=== PATIENT | male | born 1960 | race Caucasian/White ===

== ENCOUNTER → 2022-11-21 | Outpatient (CLI) | payer MEDICARE, MEDICAID ==
[~2022-11-21] MED LIST: HYDR1TAB8 OP; HYOS0.1216 PO; NF-ESOM40C PO; OXYC1TAB87 PO; QTP100T PO; SCR1T1; ZPR20C PO
== END ==
LOC: ORTHO 14:07
PROVIDERS: ATTEND Orthopaedic Surgery
DX: M16.12 Unilateral primary osteoarthritis, left hip (principal)
CPT/HCPCS: 99203